=== PATIENT | male | born 1955 | race Caucasian/White ===

== ENCOUNTER → 2017-04-21 | Outpatient (CLI) | payer BC, OTHER | LOC: ULTRA 14:26 | DX: R10.30 Lower abdominal pain, unspecified (principal) ==

== ENCOUNTER → 2017-05-05 | Outpatient (CLI) | payer BC, OTHER ==
[2017-05-05 08:23] LABS: CREATININE 1.1 mg/dL (0.7-1.3)
== END ==
LOC: CAT
PROVIDERS: Surgery
DX: K40.90 Unilateral inguinal hernia, without obstruction or gangrene, not specified as recurrent (principal); K42.9 Umbilical hernia without obstruction or gangrene; N40.0 Benign prostatic hyperplasia without lower urinary tract symptoms